=== PATIENT | male | born 1975 | race Caucasian/White ===

== ENCOUNTER 2016-12-03 06:31 | Emergency (ER) | payer OTHER ==
[~2016-12-03] VITALS: Ht 175.3 cm; Wt 90.7 kg
--- NOTE | ~2016-12-03 | CT4 ---
[facility] A Service [facility] RADIOLOGY TEXT RESULTS PATIENT: XENA AYALA LOCATION: [facility] : 77 UNIT #: [id number] AGE: [address]: Mark Russell MD SEX: M ORDER DR: [id number] [place], [place] [address] [id number] MR#: [id number] #: [id number] NAME: XENA AYALA. : 1975 SEX: M STUDY DATE/TIME: 12/03/2016 8:11 UNIT: [facility] ROOM: STUDY DESCRIPTION: CT Abd and Pelv Wo Cont Attending Physician: Mark Russell M.D. Ordering Physician: [facility] MEDICAL IMAGING REPORT This report is preliminary unless electronic signature is present EXAM CT abdomen and pelvis INDICATIONS Right flank pain and lower abdominal pain. Renal calculi. Fever and chills. TECHNIQUE CT of the abdomen and pelvis without contrast. Coronal and sagittal reconstructions were obtained. This CT exam was performed with one or more of the following radiation dose reduction techniques: automatic exposure control, adjustment of mA and/or kV according to patient size, and iterative reconstruction. COMPARISON None available. FINDINGS ABDOMEN: 4 mm calculus in the distal right ureter at the ureterovesicular junction. This results in a mild right hydronephrosis and hydroureter. There is mild right renal edema. No remaining renal calculi are identified. Noncontrast evaluation of the remaining solid abdominal organs is within normal limits. The gallbladder is not distended. The bowel is not dilated. The appendix is normal. No pelvic mass. No enlarged pelvic or inguinal lymph nodes. IMPRESSION 1. 4 mm calculus in the distal right ureter [facility] RADIOLOGY TEXT RESULTS PATIENT: XNEA AYALA LOCATION: [facility] : 77 UNIT #: [id number] AGE: [address]: Mark Russell MD SEX: M ORDER DR: hydroureteronephrosis and mild right renal edema. Dictated by... Troy Muniz M.D. THIS IS AN ELECTRONICALLY VERIFIED REPORT Troy Muniz M.D. at 12/03/2016 2:15 PM RPC/abby TD: 12/03/2016 10:15 JOB #: [id number] MEDICAL IMAGING REPORT Page 1 of 1 COPY
[2016-12-03 07:02] LABS: BASOPHIL# 0.1 X10e3 (0-0.3); BASOPHIL% 0.5 % (0-2.5); EOSINOPHIL# 0.7 X10e3 (0-0.7); EOSINOPHIL% 6.3 % (0.0-7.0); HEMATOCRIT 42.9 % (38.0-50.0); HEMOGLOBIN 14.4 gm/dL (13.0-16.0); LYMPHOCYTE# 4.7 X10e3 (1.0-3.5); LYMPHOCYTE% 45.1 % (17.0-45.0); MEAN CELL VOLUME 91.9 FL (83-96); MEAN CORPUSCULAR HEMOGLOBIN 30.8 PG (28-34); MEAN CORPUSCULAR HGB CONC 33.5 g/dL (30-36); MEAN PLATELET VOLUME 8.5 FL (6.5-11.5); MONOCYTE# 0.9 X10e3 (0-1.0); MONOCYTE% 8.5 % (3.0-12.0); NEUTROPHIL# 4.1 X10e3 (1.5-7.1); NEUTROPHIL% 39.6 % (40-75); PLATELET COUNT 273 X10e3 (140-420); RED BLOOD COUNT 4.67 X10e (3.90-5.60); RED CELL DISTRIBUTION WIDTH 12.9 % (11.0-15.5); WHITE BLOOD COUNT 10.4 X10e3 (4.0-10.5)
[2016-12-03 07:03] LABS: DIFF IND NO
[2016-12-03 07:28] LABS: URINE SOURCE CLEAN CATCH
[2016-12-03 07:32] LABS: URINE APPEARANCE CLEAR; URINE BILIRUBIN NEG (NEG); URINE BLOOD 4+ (NEG); URINE COLOR YELLOW; URINE GLUCOSE NORM (NORM); URINE KETONE NEG (NEG); URINE LEUKOCYTE ESTERASE NEG (NEG); URINE NITRATE NEG (NEG); URINE PROTEIN 1+ (NEG); URINE SPECIFIC GRAVITY 1.025 (1.003-1.035); URINE UROBILINOGEN NORM (NORM)
[2016-12-03 07:40] LABS: ALBUMIN SERUM 4.3 g/dL (3.5-5.0); ALKALINE PHOSPHATASE 130 U/L (32-92); ALT (SGPT) 23 U/L (10-40); AST (SGOT) 18 U/L (10-42); BILIRUBIN,TOTAL 0.7 mg/dL (0.2-2.0); BLOOD UREA NITROGEN 16 mg/dL (9-23); BUN/CREATININE RATIO 17.77; CALCIUM SERUM 9.4 mg/dL (8.4-10.2); CARBON DIOXIDE 27 mmol/L (22-31); CHLORIDE 104 mmol/L (100-111); CREATININE SERUM 0.9 mg/dL (0.6-1.4); GLOM FILT RATE Estimated 106.5 mL/min (>60); GLUCOSE FASTING 147 mg/dL (70-110); LIPASE 18 U/L (22-51); POTASSIUM 4.3 mmol/L (3.5-5.1); PROTEIN TOTAL SERUM 6.9 g/dL (6.0-8.3); SODIUM 139 mmol/L (135-145)
[2016-12-03 07:41] LABS: BILIRUBIN, DIRECT <0.1 mg/dL (0.0-0.2); BILIRUBIN,INDIRECT 0.6 mg/dL (0.0-0.9)
[2016-12-03 07:55] LABS: URINE MUCUS PRESENT
[2016-12-03 07:57] LABS: UWBCS1 AUWI 0-2 (0-5)
[2016-12-03 08:00] LABS: CULTURE INDICATED? NO
== END 2016-12-03 09:48 | disposition home or self-care (01) ==
LOC: CED 06:31
PROVIDERS: Emergency Medicine
DX: N20.1 Calculus of ureter (principal)
CPT/HCPCS: 36415; 74176; 80048; 80076; 81003; 83690; 85025; 96361; 96374; 96375; 96376; 99284; J1885; J2270; J2405

== ENCOUNTER 2017-01-09 20:33 | Emergency (ER) | payer OTHER ==
[~2017-01-09] VITALS: Ht 175.3 cm; Wt 90.7 kg
== END 2017-01-09 21:30 | disposition home or self-care (01) ==
LOC: SED 20:33
DX: L02.212 Cutaneous abscess of back [any part, except buttock and flank] (principal); L03.312 Cellulitis of back [any part except buttock and flank]; Z87.442 Personal history of urinary calculi
CPT/HCPCS: 99283